=== PATIENT | female | born 1980 | race Caucasian/White ===

== ENCOUNTER 2018-06-24 01:36 | Emergency (ER) | payer MEDICAID, MEDICARE ==
[~2018-06-24] VITALS: Ht 165.1 cm; Wt 80.2 kg
[2018-06-24] MEDS ORDERED: IBUPROFEN 800MG TABLET PO ONE (03:00)
[2018-06-24 05:24] VITALS: BP 136/70
== END 2018-06-24 06:29 | disposition home or self-care (01) ==
LOC: ER 01:36
DX: S52.591A Other fractures of lower end of right radius, initial encounter for closed fracture (principal); S63.276A Dislocation of unspecified interphalangeal joint of right little finger, initial encounter; G47.00 Insomnia, unspecified; G40.909 Epilepsy, unspecified, not intractable, without status epilepticus; W01.0XXA Fall on same level from slipping, tripping and stumbling without subsequent striking against object, initial encounter; Y93.89 Activity, other specified; Y92.018 Other place in single-family (private) house as the place of occurrence of the external cause
CPT/HCPCS: 26770; 73110; 73130; 73560; 99284